=== PATIENT | male | born 1965 | race Caucasian/White ===

== ENCOUNTER 2024-01-13 17:04 | Emergency (ER) | payer OTHER ==
[2024-01-13 17:22] VITALS: RESP 18
[2024-01-13] MEDS: SODIUM CHLORIDE 0.9% 1,000 ML IV STA (17:56)
[2024-01-13] MEDS: methylPREDNISolone SOD SUCCI 125 MG/2 ML VIAL IV STA (17:56)
[2024-01-13 17:57] LABS: Appearance,Urine Clear (Clear); Bilirubin,Urine Negative (Negative); Blood,Urine Negative (Negative); Color,Urine Colorless; Glucose,Urine (UA) Negative (Negative); Ketones,Urine Negative (Negative); Leukocyte Esterase,Urine Negative (Negative); Nitrite,Urine Negative (Negative); PH, Urine 6.5 (5.0-8.0); Protein,Urine Negative (Negative); Specific Gravity,Urine 1.015 (1.001-1.035); Urobilinogen,Urine <2.0 mg/dL (<2.0)
[2024-01-13 17:57] LABS: Basophils % (A) 0 %; Eosinophils # (A) 0.3 k/uL (0-0.7); Eosinophils % (A) 3 %; HCT 37.5 % (39.0-53.0); HGB 12.8 gm/dL (13.0-17.5); Lymphocytes # (A) 1.2 k/uL (1.0-4.8); Lymphocytes % (A) 13 %; MCH 33.7 pg (25.0-35.0); MCHC 34.1 g/dL (31.0-37.0); Mean Platelet Volume 8.1; Monocytes # (A) 1.1 k/uL (0-1.0); Monocytes % (A) 12 %; Neutrophils # (A) 6.4 k/uL (1.3-7.7); Neutrophils % (A) 70 %; Platelet Count 377 k/uL (150-450); RBC 3.79 m/uL (4.30-5.90); RDW 13.2 % (11.5-15.5); WBC 9.2 k/uL (3.8-10.6)
[2024-01-13] MEDS: ACETAMINOPHEN TAB 500 MG TAB PO STA (18:04)
--- NOTE | 2024-01-13 18:34 | XR ---
EXAMINATION TYPE: XR chest 2V DATE OF EXAM: 01/13/2024 6:02 PM COMPARISON: None CLINICAL INDICATION: Male, 58 years old with history of difficulty breathing; [facility] TECHNIQUE: XR chest 2V Frontal and lateral views of the chest. FINDINGS: Lungs/Pleura: Airspace opacities project over the spine and right lung base. There is no evidence of pleural effusion, focal consolidation, or pneumothorax. Pulmonary vascularity: Unremarkable. Heart/mediastinum: Cardiomediastinal silhouette is unremarkable. Musculoskeletal: No acute osseous pathology. IMPRESSION: Right lung base airspace opacities correlate for pneumonia. [facility], , 01/13/2024 6:32 PM
[2024-01-13] MEDS: IPRATROPIUM-ALBUTEROL 3 ML NEB INHALATION STA (19:18)
[2024-01-13 19:22] LABS: ALT 35 U/L (4-49); AST 31 U/L (17-59); African American GFR (CKD) >90 (>60 ml/min/1.73 sqM); Albumin 3.7 g/dL (3.5-5.0); Alkaline Phosphatase 58 U/L (38-126); Anion Gap 4 mmol/L; Blood Urea Nitrogen 17 mg/dL (9-20); Calcium 8.4 mg/dL (8.4-10.2); Carbon Dioxide 26 mmol/L (22-30); Chloride 106 mmol/L (98-107); Glucose 117 mg/dL (74-99); Magnesium 1.8 mg/dL (1.6-2.3); Non-African American GFR(CKD) >90 (>60 ml/min/1.73 sqM); Potassium 4.4 mmol/L (3.5-5.1); Sodium 136 mmol/L (137-145); Total Bilirubin 0.6 mg/dL (0.2-1.3); Total Protein 6.5 g/dL (6.3-8.2)
[2024-01-13] MEDS: ALBUTEROL HFA INHALER INHALATION STA (19:46)
--- NOTE | 2024-01-13 20:22 | ED ---
General Adult HPI - General Chief complaint: Shortness of Breath Stated complaint: covid + Time Seen by Provider: 01/13/24 17:05 Source: patient, EMS, RN notes reviewed, old records reviewed Mode of arrival: EMS Limitations: no limitations - History of Present Illness Initial comments: Is a 58-year-old male who presents emergency department for URI symptoms. Diagnosed with COVID at [facility] where he has been for the last month for rehab. Has a history of COPD. Has been having a worsening productive cough over the last few days. States is green-yellow in color. Low-grade fevers as well. Denies any chest pain. Denies any abdominal pain, nausea, vomiting. Is not usually on oxygen. Has no other acute complaints at this time. Presents for further evaluation at this time. Denies sore throat. Currently day 5 of symptoms. - Related Data Previous Rx's Medication Instructions Recorded Albuterol Sulfate [Ventolin HFA] 1 - 2 puff INHALATION Q6H PRN #1 01/13/24 each Amoxic-Pot Clav 875-125Mg 1 tab PO BID 7 Days #14 tab 01/13/24 [Augmentin 875-125] predniSONE [Deltasone] 40 mg PO DAILY 5 Days #10 tab 01/13/24 Allergies Allergy/AdvReac Type Severity Reaction Status Date / Time No Known Allergies Allergy Verified 01/13/24 17:23 Review of Systems ROS Statement: Those systems with pertinent positive or pertinent negative responses have been documented in the HPI. Review of Systems: CONST: Has low-grade fever EYES: Denies blurry vision ENT: Endorses nasal congestion, cough C/V: Denies Chest pain RESP: Denies shortness of breath GI: Denies abdominal pain : Denies dysuria SKIN: Denies rash. MSK: Denies joint pain. NEURO: Denies headache ROS Other: All systems not noted in ROS Statement are negative. Past Medical History Additional Past Medical History / Comment(s): double hernia History of Any Multi-Drug Resistant Organisms: None Reported Additional Past Surgical History / Comment(s): double hernia Past Psychological History: Depression Smoking Status: Former smoker Past Alcohol Use History: None Reported Past Drug Use History: None Reported General Exam - General Exam Comments Initial Comments: General: Appears in no acute distress. Febrile HEAD: Normal with no signs of head trauma. EYES: EOMI ENT: Hearing grossly intact, normal oropharynx. RESPIRATORY: Mild bilateral end expiratory wheezing. No significant hypoxia. C/V: Tachycardic. S1 and S2 auscultated, no edema, peripheral pulses 2+ and intact throughout ABD: Abd is soft, nontender, nondistended EXT: Normal range of motion, no obvious deformity SKIN: No rashes or lesions observed on exposed skin. NEURO: Alert and oriented x 4. No focal deficits. Limitations: no limitations Course Vital Signs 01/13/24 01/13/24 17:14 20:54 Temperature 100.4 F H 99.4 F Pulse Rate 119 H 98 Respiratory 18 18 Rate Blood Pressure 168/83 129/75 O2 Sat by Pulse 92 L 95 Oximetry Medical Decision Making - Medical Decision Making Was pt. sent in by a medical professional or institution ([facility] Mccord, HEEL CUTTER, urgent care, hospital, or intermediate...) When possible be specific @ -Sent from [place] for evaluation of URI symptoms Did you speak to anyone other than the patient for history (EMS, parent, family, police, friend...)? What history was obtained from this source @ -No Did you review nursing and triage notes (agree or disagree)? Why? @ -I reviewed and agree with nursing and triage notes Were old charts reviewed (outside hosp., previous admission, EMS record, old EKG, old radiological studies, urgent care reports/EKG's, intermediate records)? Report findings @ -No old charts were reviewed Differential Diagnosis (chest pain, altered mental status, abdominal pain women, abdominal pain men, vaginal bleeding, weakness, fever, dyspnea, syncope, headache, dizziness, GI bleed, back pain, seizure, CVA, palpatations, mental health, musculoskeletal)? @ -Pneumonia, flu, RSV, COVID. This list is not all inclusive. EKG interpreted by me (3pts min.). @ -As above X-rays interpreted by me (1pt min.). @ -Chest x-ray reveals right lower lobe pneumonia CT interpreted by me (1pt min.). @ -None done U/S interpreted by me (1pt. min.). @ -None done What testing was considered but not performed or refused? (CT, X-rays, U/S, labs)? Why? @ -None What meds were considered but not given or refused? Why? @ -None Did you discuss the management of the patient with other professionals (professionals i.e. , PA, HEEL CUTTER, lab, RT, psych nurse, child welfare social worker, growth hacker, teacher, medical officer, manager athletics)? Give summary @ -No Was smoking cessation discussed for >3mins.? @ -No Was critical care preformed (if so, how long)? @ -No Were there social determinants of health that impacted care today? How? (Homel essness, low income, unemployed, alcoholism, drug addiction, transportation, low edu. Level, literacy, decrease access to med. care, usp, rehab)? @ -No Was there de-escalation of care discussed even if they declined (Discuss DNR or withdrawal of care, Hospice)? DNR status @ -No What co-morbidities impacted this encounter? (DM, HTN, Smoking, COPD, CAD, Cancer, CVA, ARF, Chemo, Hep., AIDS, mental health diagnosis, sleep apnea, morbid obesity)? @ -COPD Was patient admitted / discharged? Hospital course, mention meds given and route, prescriptions, significant lab abnormalities, going to OR and other pertinent info. @ -Based on the patient's presentation and physical exam, presents emergency department complaining of URI symptoms. Has a history of COPD. Presents from rehab. Low-grade fever. Given breathing treatments just prior to arrival causing low-grade tachycardia. Will continue to monitor. Patient will be administered IV fluids, Tylenol, breathing treatment, steroids. He was in agreement this plan. Vital signs improved. Heart rate improved. Fever improved. Not requiring oxygenation. Labs remarkable for no leukocytosis. Lactic acid within normal limits. Patient is still testing COVID-positive. This is currently day 5. Chest x-ray does show a pneumonia. EKG unremarkable. Discussed the symptoms and findings with the patient. He will be discharged home at this time. Out of the window for antiviral therapy for COVID. Patient will be treated for pneumonia with Augmentin and given a dose prior to discharge. Patient will also be given prescriptions for prednisone as well as albuterol inhaler. He was in agreement this plan. Strict return precautions d iscussed. Vital signs within acceptable limits upon discharge. I will provide the patient with a prescription for Augmentin, prednisone, albuterol inhaler. I instructed the patient to follow up with their PCP in the next 1-3 days.. I explained that the patient should return to the emergency department if they experience any worsening symptoms. Strict return precautions were discussed with the patient. The patient expressed understanding of these instructions. I answered all questions that the patient had. The patient was discharged home in good condition with their prescriptions and follow up information. Undiagnosed new problem with uncertain prognosis? @ -No Drug Therapy requiring intensive monitoring for toxicity (Heparin, Nitro, Insulin, Cardizem)? @ -No Were any procedures done? @ -No Diagnosis/symptom? @ -COPD, COVID-19 infection, pneumonia Acute, or Chronic, or Acute on Chronic? @ -Acute Uncomplicated (without systemic symptoms) or Complicated (systemic symptoms)? @ -Complicated Side effects of treatment? @ -No Exacerbation, Progression, or Severe Exacerbation? @ -No Poses a threat to life or bodily function? How? (Chest pain, [place], [place], pneumonia, PE, COPD, DKA, ARF, appy, cholecystitis, CVA, Diverticulitis, Homicidal, Suicidal, threat to staff... and all critical care pts) @ -Unlikely at this time - Lab Data Result diagrams: 01/13/24 17:44 01/13/24 18:49 Lab Results 01/13/24 01/13/24 01/13/24 Range/Units 17:11 17:11 17:44 WBC 9.2 (3.8-10.6) k/uL RBC 3.79 L (4.30-5.90) m/uL Hgb 12.8 L (13.0-17.5) gm/dL Hct 37.5 L (39.0-53.0) % MCV 99.0 (80.0-100.0) fL MCH 33.7 (25.0-35.0) pg MCHC 34.1 (31.0-37.0) g/dL RDW 13.2 (11.5-15.5) % Plt Count 377 (150-450) k/uL MPV 8.1 Neutrophils % 70 % Lymphocytes % 13 % Monocytes % 12 % Eosinophils % 3 % Basophils % 0 % Neutrophils # 6.4 (1.3-7.7) k/uL Lymphocytes # 1.2 (1.0-4.8) k/uL Monocytes # 1.1 H (0-1.0) k/uL Eosinophils # 0.3 (0-0.7) k/uL Basophils # 0.0 (0-0.2) k/uL Sodium (137-145) mmol/L Potassium (3.5-5.1) mmol/L Chloride (98-107) mmol/L Carbon Dioxide (22-30) mmol/L Anion Gap mmol/L BUN (9-20) mg/dL Creatinine (0.66-1.25) mg/dL Est GFR (CKD-EPI)AfAm (>60 ml/min/1.73 sqM) Est GFR (CKD-EPI)NonAf (>60 ml/min/1.73 sqM) Glucose (74-99) mg/dL Plasma Lactic Acid Rafiq (0.7-2.0) mmol/L Calcium (8.4-10.2) mg/dL Magnesium (1.6-2.3) mg/dL Total Bilirubin (0.2-1.3) mg/dL AST (17-59) U/L ALT (4-49) U/L Alkaline Phosphatase (38-126) U/L Total Protein (6.3-8.2) g/dL Albumin (3.5-5.0) g/dL Urine Color Colorless Urine Appearance Clear (Clear) Urine pH 6.5 (5.0-8.0) Ur Specific Sandy 1.015 (1.001-1.035) Urine Protein Negative (Negative) Urine Glucose (UA) Negative (Negative) Urine Ketones Negative (Negative) Urine Blood Negative (Negative) Urine Nitrite Negative (Negative) Urine Bilirubin Negative (Negative) Urine Urobilinogen <2.0 (<2.0) mg/dL Ur Leukocyte Esterase Negative (Negative) Influenza Type A (PCR) Not Detected (Not Detectd) Influenza Type B (PCR) Not Detected (Not Detectd) RSV (PCR) Not Detected (Not Detectd) SARS-CoV-2 (PCR) Detected A (Not Detectd) 01/13/24 01/13/24 Range/Units 18:49 18:49 WBC (3.8-10.6) k/uL RBC (4.30-5.90) m/uL Hgb (13.0-17.5) gm/dL Hct (39.0-53.0) % MCV (80.0-100.0) fL MCH (25.0-35.0) pg MCHC (31.0-37.0) g/dL RDW (11.5-15.5) % Plt Count (150-450) k/uL MPV Neutrophils % % Lymphocytes % % Monocytes % % Eosinophils % % Basophils % % Neutrophils # (1.3-7.7) k/uL Lymphocytes # (1.0-4.8) k/uL Monocytes # (0-1.0) k/uL Eosinophils # (0-0.7) k/uL Basophils # (0-0.2) k/uL Sodium 136 L (137-145) mmol/L Potassium 4.4 (3.5-5.1) mmol/L Chloride 106 (98-107) mmol/L Carbon Dioxide 26 (22-30) mmol/L Anion Gap 4 mmol/L BUN 17 (9-20) mg/dL Creatinine 0.54 L (0.66-1.25) mg/dL Est GFR (CKD-EPI)AfAm >90 (>60 ml/min/1.73 sqM) Est GFR (CKD-EPI)NonAf >90 (>60 ml/min/1.73 sqM) Glucose 117 H (74-99) mg/dL Plasma Lactic Acid Rafiq 0.9 (0.7-2.0) mmol/L Calcium 8.4 (8.4-10.2) mg/dL Magnesium 1.8 (1.6-2.3) mg/dL Total Bilirubin 0.6 (0.2-1.3) mg/dL AST 31 (17-59) U/L ALT 35 (4-49) U/L Alkaline Phosphatase 58 (38-126) U/L Total Protein 6.5 (6.3-8.2) g/dL Albumin 3.7 (3.5-5.0) g/dL Urine Color Urine Appearance (Clear) Urine pH (5.0-8.0) Ur Specific Sandy (1.001-1.035) Urine Protein (Negative) Urine Glucose (UA) (Negative) Urine Ketones (Negative) Urine Blood (Negative) Urine Nitrite (Negative) Urine Bilirubin (Negative) Urine Urobilinogen (<2.0) mg/dL Ur Leukocyte Esterase (Negative) Influenza Type A (PCR) (Not Detectd) Influenza Type B (PCR) (Not Detectd) RSV (PCR) (Not Detectd) SARS-CoV-2 (PCR) (Not Detectd) - EKG Data -: EKG Interpreted by Me EKG Comments: 12-lead Electrocardiogram Interpretation Note EKG was reviewed and interpreted by myself. 12-lead ECG performed at 1738 is interpreted by me as revealing sinus tachycardia at a rate of 106 beats per mi nute. [place] is normal. [place] interval is 156 ms, QRS duration is 86 ms, QTc is 376 ms.. There were no ST or T wave abnormalities to suggest myocardial ischemia or injury. R wave progression across the precordium was satisfactory. By my interpretation this EKG is non-diagnostic for acute ischemia. Disposition Clinical Impression: COVID-19, Pneumonia, COPD (chronic obstructive pulmonary disease) Disposition: HOME SELF-CARE Condition: Good Instructions (If sedation given, give patient instructions): COPD (Chronic Obstructive Pulmonary Disease) (ED), Community Acquired Pneumonia (ED), COVID-19 (Coronavirus Disease 2019) (ED) Prescriptions: Amoxic-Pot Clav 875-125Mg [Augmentin 875-125] 1 tab PO BID 7 Days #14 tab predniSONE [Deltasone] 40 mg PO DAILY 5 Days #10 tab Albuterol Sulfate [Ventolin HFA] 1 - 2 puff INHALATION Q6H PRN #1 each PRN Reason: Wheezing Is patient prescribed a controlled substance at d/c from ED?: No Referrals: Nonstaff,Physician [Primary Care Provider] - 1-2 days Forms: Area PCPs Time of Disposition: 20:22
[2024-01-13] MEDS: AMOXIC-POT CLAV 875-125MG 1 EACH TAB PO STA (20:52)
[2024-01-13 20:56] VITALS: BP 129/75; PULSE 98; TEMP 99.4
== END 2024-01-13 20:57 | disposition home or self-care (01) ==
LOC: EC 17:04
DX: U07.1 COVID-19 (principal); J12.82 Pneumonia due to coronavirus disease 2019; J44.0 Chronic obstructive pulmonary disease with (acute) lower respiratory infection; R00.0 Tachycardia, unspecified; Z87.891 Personal history of nicotine dependence
CPT/HCPCS: 36415; 94640; 93005; 80053; 83605; 83735; 85025; 81003; 87636; 71046; 99285; 96374; 96361; J2919

== ENCOUNTER 2024-05-13 13:35 | Inpatient (IN) | payer OTHER ==
--- NOTE | 2024-05-13 14:34 | ED ---
SOB HPI - General Chief Complaint: Shortness of Breath Stated Complaint: SOB Time Seen by Provider: 05/13/24 13:43 Source: patient, EMS, RN notes reviewed Mode of arrival: EMS Limitations: no limitations - History of Present Illness Initial Comments: This is a 58-year-old male who presents to the emergency department for shortness of breath. Patient is currently at [facility] and has been there since 05/04. He told the nurse that he was starting to feel short of breath today and when they checked his vital signs his oxygen was found to be 82% on r oom air. They subsequently applied a nasal cannula and called EMS to bring him here for evaluation. Patient states that since receiving oxygen he is starting to feel better. He has a history of COPD. States that he used a breathing treatment this morning and it was not helpful. He just finished antibiotics for pneumonia about a week ago. Denies any chest pain. MD Complaint: shortness of breath - Related Data Previous Rx's Medication Instructions Recorded Albuterol Sulfate [Ventolin HFA] 1 - 2 puff INHALATION Q6H PRN #1 01/13/24 each Amoxic-Pot Clav 875-125Mg 1 tab PO BID 7 Days #14 tab 01/13/24 [Augmentin 875-125] predniSONE [Deltasone] 40 mg PO DAILY 5 Days #10 tab 01/13/24 Allergies Allergy/AdvReac Type Severity Reaction Status Date / Time No Known Allergies Allergy Verified 05/13/24 13:41 Review of Systems ROS Statement: Those systems with pertinent positive or pertinent negative responses have been documented in the HPI. ROS Other: All systems not noted in ROS Statement are negative. Past Medical History Past Medical History: COPD Additional Past Medical History / Comment(s): double hernia History of Any Multi-Drug Resistant Organisms: None Reported Additional Past Surgical History / Comment(s): double hernia Past Psychological History: Depression Smoking Status: Former smoker Past Alcohol Use History: None Reported Past Drug Use History: None Reported General Exam Limitations: no limitations General appearance: alert, in no apparent distress Head exam: Present: atraumatic, normocephalic, normal inspection Respiratory exam: Present: decreased breath sounds, prolonged expiratory Cardiovascular Exam: Present: normal rhythm, tachycardia Neurological exam: Present: alert, oriented X3, CN II-XII intact Psychiatric exam: Present: normal affect, normal mood Skin exam: Present: warm, dry, intact, normal color. Absent: rash Course Vital Signs 05/13/24 05/13/24 05/13/24 13:38 15:22 15:31 Temperature 98.3 F Pulse Rate 111 H 108 H 112 H Respiratory 24 Rate Blood Pressure 147/93 O2 Sat by Pulse 97 Oximetry 05/13/24 05/13/24 15:50 17:40 Temperature 98.4 F Pulse Rate 94 85 Respiratory 20 16 Rate Blood Pressure 146/87 O2 Sat by Pulse 93 L 96 Oximetry Medical Decision Making - Medical Decision Making This is a 58-year-old male who presents to the emergency department for shortness of breath. Was pt. sent in by a medical professional or institution? @ -[facility] Did you speak to anyone other than the patient for history? @ -No Did you review nursing and triage notes? @ -Yes, and I agree, it is accurate with regards to the patient's symptoms. Were old charts reviewed? @ -No Differential Diagnosis? @ -Differential Dyspnea: Coronary syndrome, arrhythmia, tamponade, asthma, COPD, pulmonary embolism, pneumonia, pneumothorax, pulmonary effusion, anaphylaxis, diabetic ketoacidosis, flailed chest, pulmonary contusion, diaphragmatic rupture, anemia, neuromuscular, this is not meant to be an all-inclusive list. EKG interpreted by me (3pts min.)? @ -EKG interpreted by me demonstrating the following: Sinus tachycardia. Ventricular rate 100 bpm, NM interval 176 ms, QRS duration 94 ms, QTc 406 ms. X-rays interpreted by me (1pt min.)? @ -Chest x-ray obtained, my interpretation identifies no localized consolidations or infiltrates. CT interpreted by me (1pt min.)? @ -Not obtained U/S interpreted by me (1pt. min.)? @ -Not obtained What testing was considered but not performed? (CT, X-rays, U/S, labs)? Why? @ -None What meds were considered but not given? Why? @ -None Did you discuss the management of the patient with other professionals? @ -Yes, Dr. Castillo, who accepts the patient for admission Did you reconcile home meds? @ -No Was smoking cessation discussed for >3mins.? @ -No Was critical care preformed (if so, how long)? @ -No Were there social determinants of health that impacted care today? How? (Homelessness, low income, unemployed, alcoholism, drug addiction, transportation, low edu. Level, literacy, decrease access to med. care, intermediate, rehab)? @ -No Was there de-escalation of care discussed even if they declined? (Discuss DNR or withdrawal of care, Hospice)? @ -No What co-morbidities impacted this encounter? (DM, HTN, Smoking, COPD, CAD, Cancer, CVA, Hep., AIDS, mental health diagnosis, sleep apnea, morbid obesity)? @ -COPD Was patient admitted / discharged? @ -Admitted. Lab work unremarkable. D-dimer and troponin negative. Patient positive for RSV. Chest x-ray reveals no acute cardiopulmonary process. Per [facility] he had an oxygen saturation of 82% on room air. We did a room air trial with the patient. Over the course of several minutes his oxygen started to slowly decrease down to 88%. Before it got lower he was put back on the na anatoliy cannula at 2 L. He also did an ambulation trial and he was significantly short of breath with walking just a short distance. His oxygen was 87-88% during short ambulation trial. Patient subsequently admitted to medicine for RSV with hypoxia. Scheduled and prn breathing treatments ordered and consult was placed for pulmonology. Case discussed with ED attending, Dr. Cavazos. Undiagnosed new problem with uncertain prognosis? @ -None Drug Therapy requiring intensive monitoring for toxicity (Heparin, Nitro, Insulin, Cardizem)? @ -None Were any procedures done? @ -None Diagnosis/symptom? @ -RSV, acute hypoxic respiratory failure Acute, or Chronic, or Acute on Chronic? @ -Acute Uncomplicated (without systemic symptoms) or Complicated (systemic symptoms)? @ -Complicated Side effects of treatment? @ -None Exacerbation, Progression, or Severe Exacerbation] @ -Not applicable Poses a threat to life or bodily function? @ -Yes, further respiratory failure can lead to . - Lab Data Result diagrams: 05/13/24 14:18 05/13/24 14:18 Lab Results 05/13/24 05/13/24 05/13/24 Range/Units 14:18 14:18 14:18 WBC 7.2 (3.8-10.6) k/uL RBC 4.53 (4.30-5.90) m/uL Hgb 13.9 (13.0-17.5) gm/dL Hct 42.4 (39.0-53.0) % MCV 93.8 (80.0-100.0) fL MCH 30.7 (25.0-35.0) pg MCHC 32.7 (31.0-37.0) g/dL RDW 13.1 (11.5-15.5) % Plt Count 176 (150-450) k/uL MPV 7.3 Neutrophils % 79 % Lymphocytes % 8 % Monocytes % 9 % Eosinophils % 2 % Basophils % 0 % Neutrophils # 5.7 (1.3-7.7) k/uL Lymphocytes # 0.6 L (1.0-4.8) k/uL Monocytes # 0.6 (0-1.0) k/uL Eosinophils # 0.1 (0-0.7) k/uL Basophils # 0.0 (0-0.2) k/uL PT 10.1 (10.0-12.5) sec INR 0.9 (<1.2) APTT 27.7 (22.0-30.0) sec D-Dimer 0.38 (<0.60) mg/L FEU Sodium 136 L (137-145) mmol/L Potassium (3.5-5.1) mmol/L Chloride 99 (98-107) mmol/L Carbon Dioxide 32 H (22-30) mmol/L Anion Gap 5 mmol/L BUN 17 (9-20) mg/dL Creatinine 0.66 (0.66-1.25) mg/dL Est GFR (CKD-EPI)AfAm >90 (>60 ml/min/1.73 sqM) Est GFR (CKD-EPI)NonAf >90 (>60 ml/min/1.73 sqM) Glucose 115 H (74-99) mg/dL Plasma Lactic Acid Rafiq (0.7-2.0) mmol/L Calcium 8.7 (8.4-10.2) mg/dL Magnesium 1.8 (1.6-2.3) mg/dL Total Bilirubin 1.0 (0.2-1.3) mg/dL AST 50 (17-59) U/L ALT 33 (4-49) U/L Alkaline Phosphatase <20 L (38-126) U/L Troponin I (0.000-0.034) ng/mL NT-Pro-B Natriuret Pep 65 pg/mL Total Protein 7.2 (6.3-8.2) g/dL Albumin 4.3 (3.5-5.0) g/dL Influenza Type A (PCR) (Not Detectd) Influenza Type B (PCR) (Not Detectd) RSV (PCR) (Not Detectd) SARS-CoV-2 (PCR) (Not Detectd) 05/13/24 05/13/24 05/13/24 Range/Units 14:18 14:18 14:18 WBC (3.8-10.6) k/uL RBC (4.30-5.90) m/uL Hgb (13.0-17.5) gm/dL Hct (39.0-53.0) % MCV (80.0-100.0) fL MCH (25.0-35.0) pg MCHC (31.0-37.0) g/dL RDW (11.5-15.5) % Plt Count (150-450) k/uL MPV Neutrophils % % Lymphocytes % % Monocytes % % Eosinophils % % Basophils % % Neutrophils # (1.3-7.7) k/uL Lymphocytes # (1.0-4.8) k/uL Monocytes # (0-1.0) k/uL Eosinophils # (0-0.7) k/uL Basophils # (0-0.2) k/uL PT (10.0-12.5) sec INR (<1.2) APTT (22.0-30.0) sec D-Dimer (<0.60) mg/L FEU Sodium (137-145) mmol/L Potassium (3.5-5.1) mmol/L Chloride (98-107) mmol/L Carbon Dioxide (22-30) mmol/L Anion Gap mmol/L BUN (9-20) mg/dL Creatinine (0.66-1.25) mg/dL Est GFR (CKD-EPI)AfAm (>60 ml/min/1.73 sqM) Est GFR (CKD-EPI)NonAf (>60 ml/min/1.73 sqM) Glucose (74-99) mg/dL Plasma Lactic Acid Rafiq 1.4 (0.7-2.0) mmol/L Calcium (8.4-10.2) mg/dL Magnesium (1.6-2.3) mg/dL Total Bilirubin (0.2-1.3) mg/dL AST (17-59) U/L ALT (4-49) U/L Alkaline Phosphatase (38-126) U/L Troponin I <0.012 (0.000-0.034) ng/mL NT-Pro-B Natriuret Pep pg/mL Total Protein (6.3-8.2) g/dL Albumin (3.5-5.0) g/dL Influenza Type A (PCR) Not Detected (Not Detectd) Influenza Type B (PCR) Not Detected (Not Detectd) RSV (PCR) Detected A (Not Detectd) SARS-CoV-2 (PCR) Not Detected (Not Detectd) - Radiology Data Radiology results: report reviewed, image reviewed Disposition Clinical Impression: RSV (respiratory syncytial virus infection), Acute hypoxic respiratory failure Disposition: ADMITTED IP TO THIS HOSP
[2024-05-13 14:38] LABS: Basophils % (A) 0 %; Eosinophils # (A) 0.1 k/uL (0-0.7); Eosinophils % (A) 2 %; HCT 42.4 % (39.0-53.0); HGB 13.9 gm/dL (13.0-17.5); Lymphocytes # (A) 0.6 k/uL (1.0-4.8); Lymphocytes % (A) 8 %; MCH 30.7 pg (25.0-35.0); MCHC 32.7 g/dL (31.0-37.0); MCV 93.8 fL (80.0-100.0); Mean Platelet Volume 7.3; Monocytes # (A) 0.6 k/uL (0-1.0); Monocytes % (A) 9 %; Neutrophils # (A) 5.7 k/uL (1.3-7.7); Neutrophils % (A) 79 %; Platelet Count 176 k/uL (150-450); RBC 4.53 m/uL (4.30-5.90); RDW 13.1 % (11.5-15.5); WBC 7.2 k/uL (3.8-10.6)
--- NOTE | 2024-05-13 14:40 | XR ---
EXAMINATION TYPE: XR chest 2V DATE OF EXAM: 05/13/2024 2:36 PM COMPARISON: Chest radiographs from 01/13/2024 TECHNIQUE: XR chest 2V Frontal and lateral views of the chest. CLINICAL INDICATION:Male, 58 years old with history of difficulty breathing; FINDINGS: Lungs/Pleura: There is no evidence of pleural effusion, focal consolidation, or pneumothorax. Stable 6 pulmonary nodule within the right lower lung. Pulmonary vascularity: Unremarkable. Heart/mediastinum: Cardiomediastinal silhouette is unremarkable. Musculoskeletal: Multiple level degenerative disc disease changes seen throughout the spine. IMPRESSION: 1. No acute cardiopulmonary disease/process. 2. Stable 6 mm pulmonary nodule within the right lower lung. Recommend further evaluation with outpa tient CT chest. [facility], , 05/13/2024 2:38 PM
[2024-05-13] MEDS: SODIUM CHLORIDE 0.9% 1,000 ML IV ONE (14:49)
[2024-05-13 14:54] LABS: INR 0.9 (<1.2); Partial Thromboplastin Time 27.7 sec (22.0-30.0); Prothrombin Time 10.1 sec (10.0-12.5)
[2024-05-13 14:59] LABS: NT-Pro-B-Type Natriuretic Pept 65 pg/mL
[2024-05-13 15:04] LABS: Influenza A Not Detected (Not Detectd); Influenza B Not Detected (Not Detectd); RSV Detected (Not Detectd)
[2024-05-13 15:18] LABS: ALT 33 U/L (4-49); AST 50 U/L (17-59); African American GFR (CKD) >90 (>60 ml/min/1.73 sqM); Albumin 4.3 g/dL (3.5-5.0); Alkaline Phosphatase <20 U/L (38-126); Anion Gap 5 mmol/L; Blood Urea Nitrogen 17 mg/dL (9-20); Calcium 8.7 mg/dL (8.4-10.2); Carbon Dioxide 32 mmol/L (22-30); Chloride 99 mmol/L (98-107); Glucose 115 mg/dL (74-99); Magnesium 1.8 mg/dL (1.6-2.3); Non-African American GFR(CKD) >90 (>60 ml/min/1.73 sqM); Sodium 136 mmol/L (137-145); Total Protein 7.2 g/dL (6.3-8.2)
[2024-05-13] MEDS: methylPREDNISolone SOD SUCCI 125 MG/2 ML VIAL IV STA (15:18)
[2024-05-13] MEDS: IPRATROPIUM-ALBUTEROL 3 ML NEB INHALATION STA (15:22)
[2024-05-13] MEDS ORDERED: IBUPROFEN 400 MG TAB PO PRN (16:16)
[2024-05-13] MEDS ORDERED: ONDANSETRON 4 MG/2 ML VIAL IVP PRN (16:16)
[2024-05-13] MEDS ORDERED: KETOROLAC 15 MG/ML 1 ML VIAL IVP PRN (16:16)
[2024-05-13] MEDS ORDERED: ACETAMINOPHEN TAB 325 MG TAB PO PRN (16:16)
[2024-05-13] MEDS ORDERED: NALOXONE 0.4 MG/ML 1 ML VIAL IV PRN (16:16)
[2024-05-13] MEDS ORDERED: MELATONIN 3 MG TABLET PO PRN (16:18)
[2024-05-13] MEDS ORDERED: IPRATROPIUM-ALBUTEROL 3 ML NEB INHALATION PRN (16:18)
[2024-05-13] MEDS: SODIUM CHLORIDE 0.9% 1,000 ML IV SCH (16:52)
[2024-05-13] MEDS: IPRATROPIUM-ALBUTEROL 3 ML NEB INHALATION SCH (19:42)
[2024-05-13] MEDS ORDERED: NON FORMULARY DRUG (Calcium Phos/D3/Magnesium/Zinc [Calcium-Mag-Zinc-Vitamin D3] 1 EACH Ta PO PRN (20:51)
[2024-05-13] MEDS: MIRTAZAPINE 15 MG TAB PO SCH (23:05)
[2024-05-13] MEDS: busPIRone HCl 10 MG TAB PO SCH (23:05)
[2024-05-13] MEDS: methylPREDNISolone SOD SUCCI 125 MG/2 ML VIAL IV SCH (23:06)
[2024-05-14] MEDS: HEPARIN SODIUM,PORCINE 5,000 UNIT/ML 1 ML VIAL SQ SCH (00:40)
[2024-05-14] MEDS: NON FORMULARY DRUG (Buprenorphine-Nalox 8-2 Mg Tab 1 EACH Tablet) SUBLINGUAL SCH (03:13)
[2024-05-14] MEDS: PANTOPRAZOLE 40 MG/10 ML VIAL IV SCH (08:09)
[2024-05-14] MEDS: THIAMINE 100 MG TAB PO SCH (08:09)
[2024-05-14] MEDS: MULTIVITAMINS, THERA 1 EACH TAB PO SCH (08:09)
[2024-05-14] MEDS: NICOTINE 14MG/24HR PATCH TRANSDERM SCH (08:10)
[2024-05-14] MEDS ORDERED: ALBUTEROL NEBULIZED 2.5 MG/3 ML INHALATION PRN (08:17)
[2024-05-14] MEDS ORDERED: ALBUTEROL HFA INHALER INHALATION PRN (08:17)
[2024-05-14] MEDS: BUPRENORPHINE-NALOX 8-2 MG TAB 1 EACH TAB.SUBL SL SCH (08:44)
[2024-05-14 09:24] LABS: ALT 28 U/L (10-49); AST 28 U/L (14-35); Albumin/Globulin Ratio 1.82 Ratio (1.60-3.17); Alkaline Phosphatase 42 U/L (41-126); BUN/Creat Ratio 20.43 Ratio (12.00-20.00); Blood Urea Nitrogen 14.3 mg/dL (9.0-27.0); Calcium 8.6 mg/dL (8.7-10.3); Carbon Dioxide 26.8 mmol/L (21.6-31.8); Chloride 103 mmol/L (96-109); Globulin 2.2 g/dL (1.6-3.3); Glucose 163 mg/dL (70-110); Potassium 4.6 mmol/L (3.5-5.5); Sodium 139 mmol/L (135-145); Total Bilirubin <0.2 mg/dL (0.3-1.2); Total Protein 6.2 g/dL (6.2-8.2)
[2024-05-14 10:15] LABS: HCT 40.1 % (39.6-50.0); HGB 12.9 g/dL (13.0-17.0); MCH 30.8 pg (27.0-32.0); MCHC 32.2 g/dL (32.0-37.0); MCV 95.7 FL (80.0-97.0); Mean Platelet Volume 10.3 FL (9.5-12.2); NRBC Per 100 WBC 0 X 10*3/uL (0.00-0.01); Platelet Count 189 X 10*3/uL (140-440); RBC 4.19 X 10*6/uL (4.40-5.60); RDW 12.5 % (11.5-14.5); WBC 4.64 X 10*3/uL (4.50-10.00)
[2024-05-14] MEDS: SYMBICORT 160-4.5 MCG INHALER INHALATION SCH (10:22)
[2024-05-14 11:03] LABS: Basophils # (A) 0.01 X 10*3/uL (0.00-0.10); Basophils % (A) 0.2 %; Eosinophils # (A) 0 X 10*3/uL (0.04-0.35); Eosinophils % (A) 0 %; Lymphocytes # (A) 0.39 X 10*3/uL (0.90-5.00); Lymphocytes % (A) 8.4 %; Monocytes # (A) 0.07 X 10*3/uL (0.20-1.00); Monocytes % (A) 1.5 %; Neutrophils # (A) 4.15 X 10*3/uL (1.80-7.70); Neutrophils % (A) 89.5 %
[2024-05-14 12:06] VITALS: BMI 22.1
--- NOTE | 2024-05-14 14:21 | HP ---
HISTORY AND PHYSICAL CHIEF COMPLAINT: Shortness of breath. HISTORY OF PRESENT ILLNESS: This is a 58-year-old gentleman with a past medical history of multiple medical problems, including substance abuse, who was in [place] mainly for cocaine and IV heroin abuse. The patient has shortness of breath. The patient was found to be hypoxic. The patient has a history of COPD. The patient was admitted for further evaluation and treatment. The chest x-ray showed a stable pulmonary nodule and RSV was positive. PAST MEDICAL HISTORY: COPD, double hernia. Rest of the history and chart is also reviewed. HOME MEDICATIONS: Reviewed and include BuSpar. Dose and rest of medication reviewed. ALLERGIES: None. FAMILY HISTORY: No history of heart disease or strokes in the family. SOCIAL HISTORY: Previous smoking. REVIEW OF SYSTEMS: 14-point review of systems is negative except as mentioned earlier. PHYSICAL EXAMINATION: VITAL SIGNS: Pulse is 72, blood pressure 136/82, respirations 20. HEENT: Conjunctivae are normal. NECK: No JVD. CARDIOVASCULAR: S1, S2. RESPIRATORY: Breath sounds diminished at the bases. Few scattered rhonchi present, and breath sounds increased. ABDOMEN: Soft and nontender. LEGS: No edema. NERVOUS SYSTEM: Nonfocal. LABORATORY DATA: Noted. ASSESSMENT: 1. Chronic obstructive pulmonary disease with acute exacerbation. 2. Acute respiratory syncytial virus infection. 3. History of substance abuse. 4. History of double hernia. 5. Depression. RECOMMENDATIONS: Recommended to continue current medications, continue symptomatic treatment. At this time, I would recommend intensive bronchodilator treatment and also recommended pulmonary consultation. Prognosis is guarded because of multiple complex medical issues and further recommendations to follow. See orders for details. Recommended serum procalcitonin also. MMODL / IJN: [id number] /
--- NOTE | 2024-05-14 18:32 | P.CNPUL ---
History of Present Illness Reason for consult: dyspnea, COPD History of present illness: This is a 58-year-old male patient, homeless, chronic smoker also known history of substance abuse with crack cocaine and IV heroin who was undergoing rehabilitation at [facility] and he admitted himself at the rehab center [facility] 10 days ago. The patient was brought into the emergency department with worsening shortness of breath. He was feeling more congested and his breathing was becoming progressively more labored. No pleurisy. No hemoptysis. No chest pain. He was also found to be hypoxic with a pulse ox of 82% room air oxygen. At that point, the patient got transferred to the hospital for further evaluation. The patient is currently on oxygen at 3 L with a pulse ox of 97%. Chest x-ray done in the emergency department showed no acute cardiopulmonary process. Stable 6 mm nodule in the right lower lobe as noted on the chest x- ray. He tested positive for RSV. His white cell count is at 4.6 with a hemoglobin 12.9 and a platelet count of 189. Normal coagulation profile. D- dimer is at 0.38. Electrolytes are all within normal limits. BUN is 14 with a creatinine of 0.7. LFTs are normal. No signs of drug withdrawal. He is awake and alert and communicating. No leg edema. No other new complaints otherwise for now. Review of Systems Constitutional: Reports daytime sleepiness, Reports fatigue, Reports fever, Reports lethargy Eyes: denies as per HPI, denies blurred vision, denies bulging eye, denies decreased vision, denies diplopia, denies discharge, denies dry eye, denies irritation, denies itching, denies pain, denies photophobia, denies loss of peripheral vision, denies loss of vision, denies tunnel vision/blind spots Ears: deny: decreased hearing, ear discharge, earache, tinnitus Ears, nose, mouth and throat: Reports as per HPI Breasts: absent: as per HPI, gynecomastia Cardiovascular: Reports decreased exercise tolerance, Reports dyspnea on exertion Respiratory: Reports cough, Reports dyspnea, Reports wheezing Gastrointestinal: Reports as per HPI Genitourinary: Reports as per HPI Musculoskeletal: Reports as per HPI Musculoskeletal: absent: ankle pain, ankle stiffness, ankle swelling, as per HPI, elbow pain, elbow stiffness, elbow swelling, foot pain, foot stiffness, foot swelling, hand pain, hand stiffness, hand swelling, hip pain, hip stiffness, hip swelling, knee pain, knee stiffness, knee swelling, shoulder pain, shoulder stiffness, shoulder swelling, wrist pain, wrist stiffness, wrist swelling Integumentary: Reports as per HPI Neurological: Reports as per HPI Psychiatric: Reports as per HPI Endocrine: Reports as per HPI Hematologic/Lymphatic: Reports as per HPI Allergic/Immunologic: Reports as per HPI Past Medical History Past Medical History: COPD Additional Past Medical History / Comment(s): double hernia. Heroin IVDA and crack cocaine smoking and he was at [facility]. Homeless History of Any Multi-Drug Resistant Organisms: None Reported Additional Past Surgical History / Comment(s): double hernia Past Psychological History: Depression Smoking Status: Former smoker Past Alcohol Use History: None Reported Past Drug Use History: None Reported Medications and Allergies Home Medications Medication Instructions Recorded Confirmed Type Acetaminophen Tab [Tylenol] 650 mg PO Q4H PRN 05/13/24 05/13/24 History Albuterol Nebulized [Ventolin 2.5 mg INHALATION RT-Q6H PRN 05/13/24 05/13/24 History Nebulized] Albuterol Sulfate [Ventolin HFA] 1 - 2 puff INHALATION Q6H PRN 05/13/24 05/13/24 History Buprenorphine-Nalox 8-2 mg Tab 1 tab SUBLINGUAL BID 05/13/24 05/13/24 History [Suboxone 8-2 mg Tab] Calcium Phos/D3/Magnesium/Zinc 1 tab PO TID PRN 05/13/24 05/13/24 History [Okjlkap-Vej-Ywbl-Vitamin D3] Ibuprofen [Motrin Ib] 600 mg PO Q6H PRN 05/13/24 05/13/24 History Mirtazapine [Remeron] 15 - 30 mg PO HS 05/13/24 05/13/24 History Multivitamins, Thera [Multivitamin 1 tab PO DAILY 05/13/24 05/13/24 History (formulary)] Nicotine 14Mg/24Hr Patch [Habitrol 1 patch TRANSDERM DAILY 05/13/24 05/13/24 History 14Mg/24Hr Patch] Thiamine [Vitamin B-1] 100 mg PO DAILY 05/13/24 05/13/24 History busPIRone HCl [Buspar] 10 mg PO TID 05/13/24 05/13/24 History Allergies Allergy/AdvReac Type Severity Reaction Status Date / Time No Known Allergies Allergy Verified 05/13/24 18:13 Physical Exam Vitals: Vital Signs Temp Pulse Pulse Resp BP BP Pulse Ox 05/14/24 10:33 80 05/14/24 10:22 76 05/14/24 07:19 97.6 F 87 18 125/79 99 05/14/24 01:59 98.1 F 73 16 110/64 96 05/14/24 01:56 103 H 20 05/13/24 20:05 98.2 F 103 H 20 177/97 96 05/13/24 19:58 98.2 F 72 20 136/81 96 05/13/24 19:54 94 05/13/24 19:43 98 05/13/24 17:40 98.4 F 85 16 146/87 96 05/13/24 15:50 94 20 93 L 05/13/24 15:31 112 H 05/13/24 15:22 108 H 05/13/24 13:38 98.3 F 111 H 24 147/93 97 Intake and Output 05/13/24 05/14/24 05/14/24 22:59 06:59 14:59 Other: Voiding Method Toilet # Voids 2 Weight 68.039 kg 68.039 kg The patient appeared well nourished and normally developed. Vital signs as documented. Stable on 3 l of oxygen by nasal cannula Head exam is unremarkable. No scleral icterus or corneal arcus noted. Neck is without jugular venous distension, thyromegaly, or carotid bruits. Carotid upstrokes are brisk bilaterally. Lungs are diminished bilaterally along with scattered expiratory wheezes heard throughout the lung lopez bilaterally Cardiac exam reveals the PMI to be normally sized and situated. Rhythm is regular. First and second heart sounds normal. No murmurs, rubs or gallops. Abdominal exam reveals normal bowel sounds, no masses, no organomegaly and no aortic enlargement. Extremities are nonedematous and both femoral and pedal pulses are normal. Examination of the skin revealed no evidence of significant rashes, suspicious appearing nevi or other concerning lesions. Neurologically, the patient is awake and alert and the patient does not have any focal neurological deficit. Cranial nerves are essentially intact. Results - Laboratory Findings CBC and BMP: 05/14/24 03:39 05/14/24 03:39 PT/INR, D-dimer PT 10.1 sec (10.0-12.5) 05/13/24 14:18 INR 0.9 (<1.2) 05/13/24 14:18 D-Dimer 0.38 mg/L FEU (<0.60) 05/13/24 14:18 Abnormal lab findings: Abnormal Labs 05/13/24 05/13/24 05/13/24 14:18 14:18 14:18 RBC Hgb Lymphocytes # 0.6 L Monocytes # Eosinophils # Sodium 136 L Carbon Dioxide 32 H BUN/Creatinine Ratio Glucose 115 H Calcium Total Bilirubin Alkaline Phosphatase <20 L RSV (PCR) Detected A 05/14/24 05/14/24 03:39 03:39 RBC 4.19 L Hgb 12.9 L Lymphocytes # 0.39 L Monocytes # 0.07 L Eosinophils # 0 L Sodium Carbon Dioxide BUN/Creatinine Ratio 20.43 H Glucose 163 H Calcium 8.6 L Total Bilirubin <0.2 L Alkaline Phosphatase RSV (PCR) - Diagnostic Findings Chest x-ray: image reviewed Assessment and Plan Plan: Acute exacerbation of COPD with secondary shortness of breath Acute RSV infection Acute hypoxic respiratory failure currently on 3 L of oxygen by nasal cannula Shortness of breath, acute on chronic secondary to above Chronic smoker Homeless History of IV heroin use and history of crack cocaine use, undergoing rehabilitation at [facility] Plan Titrate oxygen flow to maintain saturation above 90% Continue DuoNeb nebulized treatments [id number] Start patient on Symbicort 2 puffs twice a day IV Solu-Medrol 60 mg every 6 hours Continue Suboxone Continue Remeron IV fluids normal saline at rate of 75 cc an hour Heparin subcu for DVT prophylaxis Smoking cessation counseling Will continue to follow Time with Patient: Greater than 30
[2024-05-14] MEDS: IBUPROFEN 600 MG TAB PO PRN (21:52)
--- NOTE | 2024-05-15 04:10 | P.HPIM ---
History of Present Illness Date of service for this note is 05/14/2024 This is a pleasant 58 years old male with past medical history of COPD and other medical problems as below. Presents because of worsening dyspnea over a few days associated with coughing and yellow phlegm which is little in amount. He was in [place] for the last 10 days for withdrawal from substance abuse, mainly cocaine and heroin, he used the substances through significant. Yesterday patient was found short of breath and hypoxic in the hallway with o xygen saturation was 82 so he was referred to the hospital. Denies chest pain. He smokes a pack 1 pack/day and he was counseled to quit and he agrees to the nicotine patch. Patient also denies depression symptoms or suicidal or homicidal ideation Currently he is on 3 L oxygen saturating high 90s afebrile Labs are unremarkable including CBC, BMP, LFT, INR and troponin D-dimer is negative at 0.38 EKG showing sinus tachycardia at 100/min, no significant ST-T changes Chest x-ray showing COPD changes and stable 6 mm right lower lobe pulmonary nodule Viral test was positive for RSV Review of Systems Review of systems CONSTITUTIONAL: No fever, no malaise, no fatigue. HEENT: No recent visual problems or hearing problems. Denied any sore throat. CARDIOVASCULAR: No orthopnea, PND, no palpitations, no syncope. PULMONARY: No s chest wall tenderness, no hemoptysis. GASTROINTESTINAL: No diarrhea, no nausea, no vomiting, no abdominal pain. Normoactive bowel sounds. NEUROLOGICAL: No headaches, no weakness, no numbness. HEMATOLOGICAL: Denies any bleeding or petechiae. GENITOURINARY: Denies any burning micturition, frequency, or urgency. MUSCULOSKELETAL/RHEUMATOLOGICAL: Denies any joint pain, swelling, or any muscle pain. ENDOCRINE: Denies any polyuria or polydipsia. Past Medical History Past Medical History: COPD Additional Past Medical History / Comment(s): double hernia. Heroin IVDA and crack cocaine smoking and he was at [place]. Homeless History of Any Multi-Drug Resistant Organisms: None Reported Additional Past Surgical History / Comment(s): double hernia Past Psychological History: Depression Smoking Status: Former smoker Past Alcohol Use History: None Reported Past Drug Use History: None Reported Medications and Allergies Home Medications Medication Instructions Recorded Confirmed Type Acetaminophen Tab [Tylenol] 650 mg PO Q4H PRN 05/13/24 05/13/24 History Albuterol Nebulized [Ventolin 2.5 mg INHALATION RT-Q6H PRN 05/13/24 05/13/24 History Nebulized] Albuterol Sulfate [Ventolin HFA] 1 - 2 puff INHALATION Q6H PRN 05/13/24 05/13/24 History Buprenorphine-Nalox 8-2 mg Tab 1 tab SUBLINGUAL BID 05/13/24 05/13/24 History [Suboxone 8-2 mg Tab] Calcium Phos/D3/Magnesium/Zinc 1 tab PO TID PRN 05/13/24 05/13/24 History [Ztuqjpu-Pmu-Ipmx-Vitamin D3] Ibuprofen [Motrin Ib] 600 mg PO Q6H PRN 05/13/24 05/13/24 History Mirtazapine [Remeron] 15 - 30 mg PO HS 05/13/24 05/13/24 History Multivitamins, Thera [Multivitamin 1 tab PO DAILY 05/13/24 05/13/24 History (formulary)] Nicotine 14Mg/24Hr Patch [Habitrol 1 patch TRANSDERM DAILY 05/13/24 05/13/24 History 14Mg/24Hr Patch] Thiamine [Vitamin B-1] 100 mg PO DAILY 05/13/24 05/13/24 History busPIRone HCl [Buspar] 10 mg PO TID 05/13/24 05/13/24 History Allergies Allergy/AdvReac Type Severity Reaction Status Date / Time No Known Allergies Allergy Verified 05/13/24 18:13 Physical Exam Vitals: Vital Signs Temp Pulse Pulse Resp BP Pulse Ox 05/15/24 02:07 97.7 F 66 17 107/66 93 L 05/14/24 21:22 90 05/14/24 21:12 90 05/14/24 19:23 98.0 F 96 18 117/71 94 L 05/14/24 17:12 92 05/14/24 16:54 92 05/14/24 14:03 97.6 F 95 19 113/72 97 05/14/24 10:33 80 05/14/24 10:22 76 05/14/24 07:19 97.6 F 87 18 125/79 99 Intake and Output 05/14/24 05/14/24 05/15/24 14:59 22:59 06:59 Output Total 800 Balance -800 Output: Urine 800 Other: Voiding Method Urinal # Voids 2 # Bowel Movements 1 1 Weight 68.039 kg GENERAL: The patient is alert and oriented x3, not in any acute distress. Well developed, well nourished. HEENT: Pupils are round and equally reacting to light. EOMI. No scleral icterus. No conjunctival pallor. Normocephalic, atraumatic. No pharyngeal erythema. No thyromegaly. -CARDIOVASCULAR: S1 and S2 present. Bilateral expiratory murmurs, rubs, or gallops. PULMONARY: Chest is clear to auscultation, no wheezing , no crackles. ABDOMEN: Soft, nontender, nondistended, normoactive bowel sounds. No palpable organomegaly. MUSCULOSKELETAL: No joint swelling or deformity. EXTREMITIES: No cyanosis, clubbing, or pedal edema. NEUROLOGICAL: Gross neurological examination did not reveal any focal deficits. SKIN: No rashes. no petechiae. Results CBC & Chem 7: 05/14/24 03:39 05/14/24 03:39 Labs: Abnormal Lab Results - Last 24 Hours (Table) 05/14/24 05/14/24 Range/Units 03:39 03:39 RBC 4.19 L (4.40-5.60) X 10*6/uL Hgb 12.9 L (13.0-17.0) g/dL Lymphocytes # 0.39 L (0.90-5.00) X 10*3/uL Monocytes # 0.07 L (0.20-1.00) X 10*3/uL Eosinophils # 0 L (0.04-0.35) X 10*3/uL BUN/Creatinine Ratio 20.43 H (12.00-20.00) Ratio Glucose 163 H (70-110) mg/dL Calcium 8.6 L (8.7-10.3) mg/dL Total Bilirubin <0.2 L (0.3-1.2) mg/dL Thrombosis Risk Factor Assmnt - Choose All That Apply Each Factor Represents 1 point: Abnormal pulmonary function (COPD) Thrombosis Risk Factor Assessment Total Risk Factor Score: 1 Thrombosis Risk Factor Assessment Level: Low Risk Assessment and Plan Assessment: Acute COPD exacerbation Acute hypoxic respiratory failure RSV infection with viral tracheobronchitis Substance abuse with cocaine and heroin Stable right lower lobe pulmonary nodule 6 mm Plan: Continue with IV Solu-Medrol Continue with normal saline 75 mL/h Bronchodilator Pulmonary team consult Watch for withdrawal symptoms although less likely given his been more than 10 days and [place] prior to transfer D-dimer is negative Pulmonary team consult GI prophylaxis Protonix DVT prophylaxis subcutaneous heparin Further recommendation based on the clinical course Prognosis still guarded
[2024-05-15] MEDS: PANTOPRAZOLE 40 MG TABLET PO SCH (06:19)
--- NOTE | 2024-05-15 16:01 | P.PN ---
Subjective Progress Note Date: 05/15/24 This is a 58-year-old male patient, homeless, chronic smoker also known history of substance abuse with crack cocaine and IV heroin who was undergoing rehabilitation at [facility] and he admitted himself at the rehab center approximately 10 days ago. The patient was brought into the emergency department with worsening shortness of breath. He was feeling more congested and his breathing was becoming progressively more labored. No pleurisy. No hemoptysis. No chest pain. He was also found to be hypoxic with a pulse ox of 82% room air oxygen. At that point, the patient got transferred to the hospital for further evaluation. The patient is currently on oxygen at 3 L with a pulse ox of 97%. Chest x-ray done in the emergency department showed no acute cardiopulmonary process. Stable 6 mm nodule in the right lower lobe as noted on the chest x-ray. He tested positive for RSV. His white cell count is at 4.6 with a hemoglobin 12.9 and a platelet count of 189. Normal coagulation profile. D-dimer is at 0.38. Electrolytes are all within normal limits. BUN is 14 with a creatinine of 0.7. LFTs are normal. No signs of drug withdrawal. He is awake and alert and communicating. No leg edema. No other new complaints otherwise for now. On 05/15/2024, patient is being seen for a follow-up. Feeling much better compared to yesterday. He is a homeless patient with substance abuse and the patient smokes crack cocaine and IV heroin. He is also a tobacco smoker. He was hospitalized for an acute RSV infection. He is improving. Oxygenation is improving and the patient is currently down to 2 L of oxygen by nasal cannula with a pulse ox of 95%. He seems to be less bronchospastic and wheezy compared to yesterday. No new labs are available from today. No chest pain. No pleurisy or hemoptysis. No altered mentation. No signs of any withdrawals from various drugs including crack cocaine and heroin. The patient came to us from [facility] and is eager to go back to complete rehabilitation. Objective - Vital Signs Vital signs: Vital Signs Temp 97.7 F 05/15/24 07:15 Pulse 86 05/15/24 08:32 Resp 20 05/15/24 07:15 BP 118/72 05/15/24 07:15 Pulse Ox 96 05/15/24 08:23 FiO2 Intake & Output 05/14/24 05/15/24 05/15/24 18:59 06:59 18:59 Output Total 800 Balance -800 Weight 68.039 kg Output: Urine 800 Other: Voiding Method Urinal Urinal # Voids 2 # Bowel Movements 1 1 - Exam The patient appeared well nourished and normally developed. Vital signs as documented. Stable on 2 l of oxygen by nasal cannula Head exam is unremarkable. No scleral icterus or corneal arcus noted. Neck is without jugular venous distension, thyromegaly, or carotid bruits. Carotid upstrokes are brisk bilaterally. Lungs are diminished bilaterally along with scattered expiratory wheezes heard throughout the lung lopez bilaterally Cardiac exam reveals the PMI to be normally sized and situated. Rhythm is regular. First and second heart sounds normal. No murmurs, rubs or gallops. Abdominal exam reveals normal bowel sounds, no masses, no organomegaly and no aortic enlargement. Extremities are nonedematous and both femoral and pedal pulses are normal. Examination of the skin revealed no evidence of significant rashes, suspicious appearing nevi or other concerning lesions. Neurologically, the patient is awake and alert and the patient does not have any focal neurological deficit. Cranial nerves are essentially intact. - Labs CBC & Chem 7: 05/14/24 03:39 05/14/24 03:39 Assessment and Plan Plan: Acute exacerbation of COPD with secondary shortness of breath, clinically improving. Acute RSV infection Acute hypoxic respiratory failure currently on 2 L of oxygen by nasal cannula Shortness of breath, acute on chronic secondary to above Chronic smoker Homeless History of IV heroin use and history of crack cocaine use, undergoing rehabilitation at [facility] Plan Titrate oxygen flow to maintain saturation above 90%, currently on 2 L of oxygen by nasal cannula Continue DuoNeb nebulized treatments [id number] Continue Symbicort 2 puffs twice a day Continue IV Solu-Medrol 60 mg every 6 hours Continue Suboxone Continue Remeron IV fluids KVO Heparin subcu for DVT prophylaxis Smoking cessation counseling Will continue to follow
--- NOTE | 2024-05-15 16:39 | XR ---
EXAMINATION TYPE: XR chest 1V portable DATE OF EXAM: 05/15/2024 4:29 PM COMPARISON: Chest radiographs from 04/16/2024 CLINICAL INDICATION: Male, 58 years old with history of shortness of breath; [facility] TECHNIQUE: XR chest 1V portable Frontal view of the chest. FINDINGS: Lungs/Pleura: Prominent interstitial lung markings are seen scattered throughout the lungs. No eviden ce of focal consolidation, pneumothorax or pleural effusion. Pulmonary vascularity: Unremarkable. Heart/mediastinum: Cardiomediastinal silhouette is unremarkable. Musculoskeletal: No acute osseous pathology. Other findings: None IMPRESSION: Chronic changes without acute pulmonary process. No significant change from prior. [facility], , 05/15/2024 4:36 PM
--- NOTE | 2024-05-16 01:22 | PN ---
PROGRESS NOTE DATE OF SERVICE: 05/15/2024 SUBJECTIVE: This is a 58-year-old gentleman, who was admitted with COPD as well as RSV infection and is being closely monitored. No chest pain, no palpitation. PHYSICAL EXAMINATION: VITAL SIGNS: Pulse is 69, blood pressure 120/70, respirations 20. CHEST: A few scattered rhonchi. ABDOMEN: Soft. NERVOUS SYSTEM: Nonfocal. LABORATORY DATA: Reviewed. ASSESSMENT: 1. Chronic obstructive pulmonary disease with acute exacerbation. 2. Acute respiratory syncytial virus infection. 3. History of substance abuse. 4. History of double hernia. 5. Depression. RECOMMENDATIONS: Recommended to continue with current management. Continue with Repeat labs. Continue with bronchodilators and steroids. Possible return to [facility] in 24 hours. MMODL / IJN: [id number] /
[2024-05-16 08:30] LABS: Basophils # (A) 0.02 X 10*3/uL (0.00-0.10); Basophils % (A) 0.1 %; Eosinophils # (A) 0.01 X 10*3/uL (0.04-0.35); Eosinophils % (A) 0.1 %; HCT 43.5 % (39.6-50.0); HGB 13.6 g/dL (13.0-17.0); Lymphocytes % (A) 4.8 %; MCH 30.7 pg (27.0-32.0); MCHC 31.3 g/dL (32.0-37.0); MCV 98.2 FL (80.0-97.0); Mean Platelet Volume 9.9 FL (9.5-12.2); Monocytes # (A) 0.73 X 10*3/uL (0.20-1.00); Monocytes % (A) 4.4 %; NRBC Per 100 WBC 0 X 10*3/uL (0.00-0.01); Neutrophils # (A) 14.92 X 10*3/uL (1.80-7.70); Neutrophils % (A) 89.8 %; Platelet Count 230 X 10*3/uL (140-440); RBC 4.43 X 10*6/uL (4.40-5.60); RDW 13.1 % (11.5-14.5); WBC 16.62 X 10*3/uL (4.50-10.00)
[2024-05-16 09:11] LABS: BUN/Creat Ratio 26.67 Ratio (12.00-20.00); Calcium 8.9 mg/dL (8.7-10.3); Carbon Dioxide 30.8 mmol/L (21.6-31.8); Chloride 103 mmol/L (96-109); Glucose 120 mg/dL (70-110); Potassium 4.8 mmol/L (3.5-5.5); Sodium 143 mmol/L (135-145)
--- NOTE | 2024-05-16 15:56 | P.PN ---
Subjective Progress Note Date: 05/16/24 This is a 58-year-old male patient, homeless, chronic smoker also known history of substance abuse with crack cocaine and IV heroin who was undergoing rehabilitation at [place] and he admitted himself at the rehab center approximately 10 days ago. The patient was brought into the emergency department with worsening shortness of breath. He was feeling more congested and his breathing was becoming progressively more labored. No pleurisy. No hemoptysis. No chest pain. He was also found to be hypoxic with a pulse ox of 82% room air oxygen. At that point, the patient got transferred to the hospital for further evaluation. The patient is currently on oxygen at 3 L with a pulse ox of 97%. Chest x-ray done in the emergency department showed no acute cardiopulmonary process. Stable 6 mm nodule in the right lower lobe as noted on the chest x-ray. He tested positive for RSV. His white cell count is at 4.6 with a hemoglobin 12.9 and a platelet count of 189. Normal coagulation profile. D-dimer is at 0.38. Electrolytes are all within normal limits. BUN is 14 with a creatinine of 0.7. LFTs are normal. No signs of drug withdrawal. He is awake and alert and communicating. No leg edema. No other new complaints otherwise for now. On 05/15/2024, patient is being seen for a follow-up. Feeling much better compared to yesterday. He is a homeless patient with substance abuse and the patient smokes crack cocaine and IV heroin. He is also a tobacco smoker. He was hospitalized for an acute RSV infection. He is improving. Oxygenation is improving and the patient is currently down to 2 L of oxygen by nasal cannula with a pulse ox of 95%. He seems to be less bronchospastic and wheezy compared to yesterday. No new labs are available from today. No chest pain. No pleurisy or hemoptysis. No altered mentation. No signs of any withdrawals from various drugs including crack cocaine and heroin. The patient came to us from [place] and is eager to go back to complete rehabilitation. 05/16/2024, the patient is being seen for a follow-up. The patient is still hypoxic and requiring 2 L of oxygen by nasal cannula. He reports slow but ongoing improvement. He remains on Symbicort, DuoNeb updrafts, and IV Solu- Medrol. No new complaints. No agitation. No restlessness. White cell count of 16, likely steroid-induced and the patient's hemoglobin is 13.6 and a platelet count is 230. BUN is 16 and the creatinine is at 0.6 and sodium levels at 143. No other significant events overnight. Ambulating. Using the incentive spirometer. Objective - Vital Signs Vital signs: Vital Signs Temp 97.4 F L 05/16/24 07:39 Pulse 88 05/16/24 11:51 Resp 20 05/16/24 07:39 BP 113/69 05/16/24 07:39 Pulse Ox 93 L 05/16/24 07:39 FiO2 Intake & Output 05/15/24 05/16/24 05/16/24 18:59 06:59 18:59 Other: Voiding Method Urinal Urinal # Voids 1 1 - Exam The patient appeared well nourished and normally developed. Vital signs as documented. Stable on 2 l of oxygen by nasal cannula Head exam is unremarkable. No scleral icterus or corneal arcus noted. Neck is without jugular venous distension, thyromegaly, or carotid bruits. Carotid upstrokes are brisk bilaterally. Lungs are diminished bilaterally along with scattered expiratory wheezes heard throughout the lung lopez bilaterally Cardiac exam reveals the PMI to be normally sized and situated. Rhythm is regular. First and second heart sounds normal. No murmurs, rubs or gallops. Abdominal exam reveals normal bowel sounds, no masses, no organomegaly and no aortic enlargement. Extremities are nonedematous and both femoral and pedal pulses are normal. Examination of the skin revealed no evidence of significant rashes, suspicious appearing nevi or other concerning lesions. Neurologically, the patient is awake and alert and the patient does not have any focal neurological deficit. Cranial nerves are essentially intact. - Labs CBC & Chem 7: 05/16/24 03:35 05/16/24 03:35 Labs: Abnormal Lab Results - Last 24 Hours (Table) 05/16/24 05/16/24 Range/Units 03:35 03:35 WBC 16.62 H (4.50-10.00) X 10*3/uL MCV 98.2 H (80.0-97.0) FL MCHC 31.3 L (32.0-37.0) g/dL Immature Gran # 0.14 H (0.00-0.04) X 10*3/uL Neutrophils # 14.92 H (1.80-7.70) X 10*3/uL Lymphocytes # 0.80 L (0.90-5.00) X 10*3/uL Eosinophils # 0.01 L (0.04-0.35) X 10*3/uL BUN/Creatinine Ratio 26.67 H (12.00-20.00) Ratio Glucose 120 H (70-110) mg/dL Assessment and Plan Plan: Acute exacerbation of COPD with secondary shortness of breath, clinically improving. Acute RSV infection Acute hypoxic respiratory failure currently on 2 L of oxygen by nasal cannula Shortness of breath, acute on chronic secondary to above Chronic smoker Homeless History of IV heroin use and history of crack cocaine use, undergoing rehabilitation at [facility] The patient is still oxygen dependent. Unable to wean the oxygen as the patient desaturates and he continues to have symptoms of COPD exacerbation related to RSV infection. Will continue same treatment and will give the patient 24 hours. Titrate oxygen flow to maintain saturation above 90%, currently on 2 L of oxygen by nasal cannula Continue DuoNeb nebulized treatments [id number] Continue Symbicort 2 puffs twice a day Continue IV Solu-Medrol 60 mg every 6 hours Continue Suboxone Continue Remeron IV fluids KVO Heparin subcu for DVT prophylaxis Smoking cessation counseling Will continue to follow
--- NOTE | 2024-05-16 16:26 | XR ---
EXAMINATION TYPE: XR chest 1V portable DATE OF EXAM: 05/16/2024 4:19 PM COMPARISON: Chest radiographs from 05/15/2024 CLINICAL INDICATION: Male, 58 years old with history of shortness of breath; [facility] TECHNIQUE: XR chest 1V portable Frontal view of the chest. FINDINGS: Lungs/Pleura: There is no evidence of pleural effusion, focal consolidation, or pneumothorax. Pulmonary vascularity: Unremarkable. Heart/mediastinum: Cardiomediastinal silhouette is unremarkable. Musculoskeletal: No acute osseous pathology. Other findings: None IMPRESSION: No acute cardiopulmonary disease/process. [facility], , 05/16/2024 4:24 PM
[2024-05-16] MEDS: ALBUTEROL NEBULIZED 2.5 MG/3 ML INHALATION SCH (17:19)
--- NOTE | 2024-05-16 21:36 | P.PN ---
Subjective Progress Note Date: 05/16/24 This is a pleasant 58-year-old male who was recently admitted from [place] with increasing shortness of breath found to be RSV positive along with COPD exacerbation and respiratory failure. Patient currently on 2 L and performed oxygen evaluation and desats quickly to 80% on room air. Patient does not normally wear oxygen outpatient. Patient with significant COPD and expiratory wheezes is maintained on [id number] DuoNeb treatments along with IV steroids. Encouraged incentive spirometer use and increase activity as tolerated. Review of systems: Constitutional: No reports of fatigue, fever, or chills Cardiovascular: No reports of chest pain or palpitations Respiratory: reports of continued shortness of breath, continued cough now with some minimal production GI: No reports of nausea, no reports of vomiting, no diarrhea : No reports of dysuria or retention Neurovascular: No reports of generalized weakness, becomes winded on exertion All medications have been reviewed PHYSICAL EXAMINATION: GENERAL: The patient is alert and oriented x4, Well developed, thin built appears older than stated age. HEENT: Pupils are round and equally reacting to light. EOMI. no scleral icterus. No conjunctival pallor. Normocephalic, atraumatic. No pharyngeal erythema. No thyromegaly. CARDIOVASCULAR: S1 and S2 muffled PULMONARY: diminished breath sounds bilaterally expiratory wheezing and coarse rhonchi noted. ABDOMEN: soft. Nontender on exam. Thin. non-distended, normoactive bowel sounds. No palpable organomegaly. MUSCULOSKELETAL: No joint swelling or deformity. EXTREMITIES: No cyanosis, clubbing, or pedal edema. NEUROLOGICAL: Gross neurological examination did not reveal any focal deficits. SKIN: No rashes. Assessment: Chronic obstructive pulmonary disease with acute exacerbation Acute hypoxic respiratory failure, multifactorial, secondary to COPD as well as acute RSV infection Acute RSV infection History of substance abuse and IV drug abuse, currently at [place] for inpatient rehab Depression Former smoker GI prophylaxis DVT prophylaxis Full code Plan: Recommend to continue with current medications and management with pulmonary following. Patient is maintained on DuoNeb treatments [id number] along with IV steroids and inhalers clinically showing some slow improvement although not back at baseline. Patient continues to be hypoxic on room air and was evaluated and is 80% on room air with minimal exertion. Encourage incentive spirometer use at least 10 times every hour while awake Continue with supplemental oxygen and wean as tolerated Overall prognosis is guarded at this time Patient will be returning to [place] to complete inpatient rehab for polysubstance abuse on discharge. The impression and plan of care has been dictated by Nguyen Ybarra, nurse practitioner as directed. Dr. Frederick MD I have performed a history and examination and MDM of this patient, discussed the same with the dictator, and agree with the dictator's assessment and plan as written ,documented as a scribe. Based on total visit time, I have performed more than 50% of the visit. Any additional findings or plans will be noted. Objective - Vital Signs Vital signs: Vital Signs Temp 97.4 F L 05/16/24 07:39 Pulse 92 05/16/24 12:01 Resp 20 05/16/24 07:39 BP 113/69 05/16/24 07:39 Pulse Ox 93 L 05/16/24 07:39 FiO2 Intake & Output 05/15/24 05/16/24 05/16/24 18:59 06:59 18:59 Other: Voiding Method Urinal Urinal # Voids 1 1 - Labs CBC & Chem 7: 05/16/24 03:35 05/16/24 03:35 Labs: Abnormal Lab Results - Last 24 Hours (Table) 05/16/24 05/16/24 Range/Units 03:35 03:35 WBC 16.62 H (4.50-10.00) X 10*3/uL MCV 98.2 H (80.0-97.0) FL MCHC 31.3 L (32.0-37.0) g/dL Immature Gran # 0.14 H (0.00-0.04) X 10*3/uL Neutrophils # 14.92 H (1.80-7.70) X 10*3/uL Lymphocytes # 0.80 L (0.90-5.00) X 10*3/uL Eosinophils # 0.01 L (0.04-0.35) X 10*3/uL BUN/Creatinine Ratio 26.67 H (12.00-20.00) Ratio Glucose 120 H (70-110) mg/dL
[2024-05-17] MEDS: TIOTROPIUM 2.5 MCG INHALER INHALATION SCH (07:47)
[2024-05-17 11:57] LABS: HIV-1 RNA Not detected (Not detected)
--- NOTE | 2024-05-17 23:06 | P.PN ---
Subjective Progress Note Date: 05/17/24 This is a 58-year-old male patient, homeless, chronic smoker also known history of substance abuse with crack cocaine and IV heroin who was undergoing rehabilitation at [place] and he admitted himself at the rehab center approximately 10 days ago. The patient was brought into the emergency department with worsening shortness of breath. He was feeling more congested and his breathing was becoming progressively more labored. No pleurisy. No hemoptysis. No chest pain. He was also found to be hypoxic with a pulse ox of 82% room air oxygen. At that point, the patient got transferred to the hospital for further evaluation. The patient is currently on oxygen at 3 L with a pulse ox of 97%. Chest x-ray done in the emergency department showed no acute cardiopulmonary process. Stable 6 mm nodule in the right lower lobe as noted on the chest x-ray. He tested positive for RSV. His white cell count is at 4.6 with a hemoglobin 12.9 and a platelet count of 189. Normal coagulation profile. D-dimer is at 0.38. Electrolytes are all within normal limits. BUN is 14 with a creatinine of 0.7. LFTs are normal. No signs of drug withdrawal. He is awake and alert and communicating. No leg edema. No other new complaints otherwise for now. On 05/15/2024, patient is being seen for a follow-up. Feeling much better compared to yesterday. He is a homeless patient with substance abuse and the patient smokes crack cocaine and IV heroin. He is also a tobacco smoker. He was hospitalized for an acute RSV infection. He is improving. Oxygenation is improving and the patient is currently down to 2 L of oxygen by nasal cannula with a pulse ox of 95%. He seems to be less bronchospastic and wheezy compared to yesterday. No new labs are available from today. No chest pain. No pleurisy or hemoptysis. No altered mentation. No signs of any withdrawals from various drugs including crack cocaine and heroin. The patient came to us from [place] and is eager to go back to complete rehabilitation. 05/16/2024, the patient is being seen for a follow-up. The patient is still hypoxic and requiring 2 L of oxygen by nasal cannula. He reports slow but ongoing improvement. He remains on Symbicort, DuoNeb updrafts, and IV Solu- Medrol. No new complaints. No agitation. No restlessness. White cell count of 16, likely steroid-induced and the patient's hemoglobin is 13.6 and a platelet count is 230. BUN is 16 and the creatinine is at 0.6 and sodium levels at 143. No other significant events overnight. Ambulating. Using the incentive spirometer. On 05/17/2024, the patient is on 1 L of oxygen by nasal cannula. He continues to saturate on room air oxygen especially with activity. He is feeling better. Less mucus basic and wheezy. No new complaints otherwise for now. No new labs are available from today. He remains on the same regimen of bronchodilators. He is on DuoNeb updrafts. He is on Symbicort as maintenance, and he remains on IV Solu-Medrol. He is active. He is ambulating. He is using incentive spirometer. Objective - Vital Signs Vital signs: Vital Signs Temp 97.5 F L 05/17/24 07:05 Pulse 78 05/17/24 07:05 Resp 17 05/17/24 07:05 BP 151/92 05/17/24 07:05 Pulse Ox 96 05/17/24 07:05 FiO2 Intake & Output 05/16/24 05/17/24 05/17/24 18:59 06:59 18:59 Output Total 300 Balance -300 Output: Urine 300 Other: Voiding Method Toilet Urinal # Voids 2 - Exam The patient appeared well nourished and normally developed. Vital signs as documented. Stable on 2 l of oxygen by nasal cannula Head exam is unremarkable. No scleral icterus or corneal arcus noted. Neck is without jugular venous distension, thyromegaly, or carotid bruits. Carotid upstrokes are brisk bilaterally. Lungs are diminished bilaterally along with scattered expiratory wheezes heard throughout the lung lopez bilaterally Cardiac exam reveals the PMI to be normally sized and situated. Rhythm is regular. First and second heart sounds normal. No murmurs, rubs or gallops. Abdominal exam reveals normal bowel sounds, no masses, no organomegaly and no aortic enlargement. Extremities are nonedematous and both femoral and pedal pulses are normal. Examination of the skin revealed no evidence of significant rashes, suspicious appearing nevi or other concerning lesions. Neurologically, the patient is awake and alert and the patient does not have any focal neurological deficit. Cranial nerves are essentially intact. - Labs CBC & Chem 7: 05/16/24 03:35 05/16/24 03:35 Assessment and Plan Plan: Acute exacerbation of COPD with secondary shortness of breath, clinically improving. Acute RSV infection Acute hypoxic respiratory failure currently on 2 L of oxygen by nasal cannula Shortness of breath, acute on chronic secondary to above Chronic smoker Homeless History of IV heroin use and history of crack cocaine use, undergoing rehabilitation at [facility] The patient is still oxygen dependent. Currently on 1 L of oxygen by nasal cannula Anticipate further improvement in his oxygenation over the next 24 hours. Clinically improving. He is more active. Continue DuoNeb nebulized treatments [id number] Continue Symbicort 2 puffs twice a day Continue IV Solu-Medrol 60 mg every 6 hours Continue Suboxone Continue Remeron IV fluids KVO Heparin subcu for DVT prophylaxis Smoking cessation counseling Will continue to follow
--- NOTE | 2024-05-18 06:06 | P.PN ---
Subjective Progress Note Date: 05/17/24 This is a pleasant 58-year-old male who was recently admitted from [place] with increasing shortness of breath found to be RSV positive along with COPD exacerbation and respiratory failure. Patient currently on 2 L and performed oxygen evaluation and desats quickly to 80% on room air. Patient does not normally wear oxygen outpatient. Patient with significant COPD and expiratory wheezes is maintained on [id number] DuoNeb treatments along with IV steroids. Encouraged incentive spirometer use and increase activity as tolerated. 05/17/2024 Patient is seen in follow-up today being followed by pulmonary maintained on 1 L via nasal cannula and saturating 96%. Patient desats very quickly off oxygen and is difficult to recover. Attempted home O2 evaluation yesterday and oxygen saturation dropped into the low 80s and patient does not wear oxygen outpatient. Plan is to return to [place] for continued inpatient rehab and unable to bring oxygen at there. Continue to wean FiO2 as tolerated and strongly encouraged increased activity and continued incentive spirometer use. Will co ntinue [id number] DuoNebs along with steroids at this time. Review of systems: Constitutional: No reports of fatigue, fever, or chills Cardiovascular: No reports of chest pain or palpitations Respiratory: reports of continued shortness of breath, continued cough now with some minimal improvement in phlegm production GI: No reports of nausea, no reports of vomiting, no diarrhea : No reports of dysuria or retention Neurovascular: No reports of generalized weakness, becomes winded on exertion All medications have been reviewed PHYSICAL EXAMINATION: GENERAL: The patient is alert and oriented x4, Well developed, thin built appears older than stated age. HEENT: Pupils are round and equally reacting to light. EOMI. no scleral icterus. No conjunctival pallor. Normocephalic, atraumatic. No pharyngeal erythema. No thyromegaly. CARDIOVASCULAR: S1 and S2 muffled PULMONARY: diminished breath sounds bilaterally expiratory wheezing and coarse rhonchi noted. ABDOMEN: soft. Nontender on exam. Thin. non-distended, normoactive bowel sounds. No palpable organomegaly. MUSCULOSKELETAL: No joint swelling or deformity. EXTREMITIES: No cyanosis, clubbing, or pedal edema. NEUROLOGICAL: Gross neurological examination did not reveal any focal deficits. SKIN: No rashes. Assessment: Chronic obstructive pulmonary disease with acute exacerbation Acute hypoxic respiratory failure, multifactorial, secondary to COPD as well as acute RSV infection Acute RSV infection History of substance abuse and IV drug abuse, currently at [place] for inpatient rehab Depression Former smoker GI prophylaxis DVT prophylaxis Full code Plan: Recommend to continue with current medications and management with pulmonary following. Patient is maintained on DuoNeb treatments [id number] along with IV steroids and inhalers clinically showing some slow improvement although not back at baseline. Patient continues to be hypoxic on room air and was evaluated and is 80% on room air with minimal exertion. Wean FiO2 as tolerated. Currently on 1 L Encourage incentive spirometer use at least 10 times every hour while awake Continue with supplemental oxygen and wean as tolerated Overall prognosis is guarded at this time Patient will be returning to [place] to complete inpatient rehab for polysubstance abuse on discharge. The impression and plan of care has been dictated by Nguyen Ybarra, nurse practitioner as directed. Dr. Frederick MD I have performed a history and examination and MDM of this patient, discussed the same with the dictator, and agree with the dictator's assessment and plan as written ,documented as a scribe. Based on total visit time, I have performed more than 50% of the visit. Any additional findings or plans will be noted. Objective - Vital Signs Vital signs: Vital Signs Temp 97.6 F 05/18/24 01:41 Pulse 78 05/18/24 01:41 Resp 16 05/18/24 01:41 BP 136/78 05/18/24 01:41 Pulse Ox 99 05/18/24 01:41 FiO2 Intake & Output 05/17/24 05/17/24 05/18/24 06:59 18:59 06:59 Output Total 300 500 Balance -300 -500 Weight 68.039 kg Output: Urine 300 500 Other: Voiding Method Toilet Toilet Urinal Urinal # Voids 2 # Bowel Movements 1 - Labs CBC & Chem 7: 05/16/24 03:35 05/16/24 03:35 Labs: Microbiology - Last 24 Hours (Table) 05/16/24 16:35 Blood Culture - Preliminary Blood 05/17/24 06:59 Gram Stain - Preliminary Sputum
[2024-05-18 07:44] VITALS: BP 175/90; PULSE 75; RESP 20; TEMP 97.4
--- NOTE | 2024-05-18 17:30 | P.PN ---
Subjective Progress Note Date: 05/18/24 This is a 58-year-old male patient, homeless, chronic smoker also known history of substance abuse with crack cocaine and IV heroin who was undergoing rehabilitation at [facility] and he admitted himself at the rehab center approximately 10 days ago. The patient was brought into the emergency department with worsening shortness of breath. He was feeling more congested and his breathing was becoming progressively more labored. No pleurisy. No hemoptysis. No chest pain. He was also found to be hypoxic with a pulse ox of 82% room air oxygen. At that point, the patient got transferred to the hospital for further evaluation. The patient is currently on oxygen at 3 L with a pulse ox of 97%. Chest x-ray done in the emergency department showed no acute cardiopulmonary process. Stable 6 mm nodule in the right lower lobe as noted on the chest x-ray. He tested positive for RSV. His white cell count is at 4.6 with a hemoglobin 12.9 and a platelet count of 189. Normal coagulation profile. D-dimer is at 0.38. Electrolytes are all within normal limits. BUN is 14 with a creatinine of 0.7. LFTs are normal. No signs of drug withdrawal. He is awake and alert and communicating. No leg edema. No other new complaints otherwise for now. On 05/15/2024, patient is being seen for a follow-up. Feeling much better compared to yesterday. He is a homeless patient with substance abuse and the patient smokes crack cocaine and IV heroin. He is also a tobacco smoker. He was hospitalized for an acute RSV infection. He is improving. Oxygenation is improving and the patient is currently down to 2 L of oxygen by nasal cannula with a pulse ox of 95%. He seems to be less bronchospastic and wheezy compared to yesterday. No new labs are available from today. No chest pain. No pleurisy or hemoptysis. No altered mentation. No signs of any withdrawals from various drugs including crack cocaine and heroin. The patient came to us from [facility] and is eager to go back to complete rehabilitation. 05/16/2024, the patient is being seen for a follow-up. The patient is still hypoxic and requiring 2 L of oxygen by nasal cannula. He reports slow but ongoing improvement. He remains on Symbicort, DuoNeb updrafts, and IV Solu- Medrol. No new complaints. No agitation. No restlessness. White cell count of 16, likely steroid-induced and the patient's hemoglobin is 13.6 and a platelet count is 230. BUN is 16 and the creatinine is at 0.6 and sodium levels at 143. No other significant events overnight. Ambulating. Using the incentive spirometer. On 05/17/2024, the patient is on 1 L of oxygen by nasal cannula. He continues to saturate on room air oxygen especially with activity. He is feeling better. Less mucus basic and wheezy. No new complaints otherwise for now. No new labs are available from today. He remains on the same regimen of bronchodilators. He is on DuoNeb updrafts. He is on Symbicort as maintenance, and he remains on IV Solu-Medrol. He is active. He is ambulating. He is using incentive spirometer. 05/18/2024, Gagandeep is feeling better. His oxygenation is improved. He denies having any specific complaints. I think he can continue his rest of the treatment on outpatient basis. The patient is to be discharged on a combination of Spiriva and Symbicort as maintenance and prednisone burst taper. We will be also offered albuterol rescue inhaler to be used on an as-needed basis. If possible, the patient is interested in going back to [facility]. Objective - Vital Signs Vital signs: Vital Signs Temp 97.4 F L 05/18/24 07:23 Pulse 75 05/18/24 07:23 Resp 20 05/18/24 07:23 BP 175/90 05/18/24 07:23 Pulse Ox 93 L 05/18/24 07:23 FiO2 Intake & Output 05/17/24 05/18/24 05/18/24 18:59 06:59 18:59 Output Total 500 300 Balance -500 -300 Weight 68.039 kg Output: Urine 500 300 Other: Voiding Method Toilet Urinal # Voids 2 # Bowel Movements 1 - Exam The patient appeared well nourished and normally developed. Vital signs as documented. Stable on 2 l of oxygen by nasal cannula Head exam is unremarkable. No scleral icterus or corneal arcus noted. Neck is without jugular venous distension, thyromegaly, or carotid bruits. Carotid upstrokes are brisk bilaterally. Lungs are diminished bilaterally along with scattered expiratory wheezes heard throughout the lung lopez bilaterally Cardiac exam reveals the PMI to be normally sized and situated. Rhythm is regular. First and second heart sounds normal. No murmurs, rubs or gallops. Abdominal exam reveals normal bowel sounds, no masses, no organomegaly and no aortic enlargement. Extremities are nonedematous and both femoral and pedal pulses are normal. Examination of the skin revealed no evidence of significant rashes, suspicious appearing nevi or other concerning lesions. Neurologically, the patient is awake and alert and the patient does not have any focal neurological deficit. Cranial nerves are essentially intact. - Labs CBC & Chem 7: 05/16/24 03:35 05/16/24 03:35 Labs: Microbiology - Last 24 Hours (Table) 05/16/24 16:35 Blood Culture - Preliminary Blood 05/17/24 06:59 Gram Stain - Preliminary Sputum Assessment and Plan Plan: Acute exacerbation of COPD with secondary shortness of breath, clinically improving. Shortness of breath is improved. Oxygenation is also improved and the patient is currently on room air oxygen. Acute RSV infection Acute hypoxic respiratory failure, improved Shortness of breath, acute on chronic secondary to above Chronic smoker Homeless History of IV heroin use and history of crack cocaine use, undergoing rehabilitation at [facility] Plan The patient is feeling better and oxygenation is improved. doing a home O2 evaluation If oxygenation is stable, the patient can be discharged home on a combination of Symbicort and Spiriva and albuterol nebulized treatments/HFA as needed. He also completed prednisone burst taper on outpatient basis starting with 40 mg to be tapered by 10 mg every 4 days. Continue Suboxone Continue Remeron IV fluids KVO Heparin subcu for DVT prophylaxis Smoking cessation counseling Possible discharge home versus discharge to [facility]. Medicine is involved.
--- NOTE | 2024-05-20 12:58 | P.DS ---
Providers Date of admission: 05/13/24 17:14 Expected date of discharge: 05/18/24 Attending physician: Yusuf Castillo Consults: 05/13/24 16:16 Consult Physician Urgent Consulting Provider: Richmond Molina Consult Reason/Comments: RSV with hypoxic respiratory failure Do you want consulting provider notified?: Yes Primary care physician: Anabelle Anderson, Hospital Course: Final diagnosis Chronic obstructive pulmonary disease with acute exacerbation Acute hypoxic respiratory failure, multifactorial, secondary to COPD as well as acute RSV infection, improved on room air Acute RSV infection History of substance abuse and IV drug abuse, currently at [facility] for inpatient rehab Depression Former smoker GI prophylaxis DVT prophylaxis Full code Discharge disposition Patient is being discharged in a stable condition with guarded prognosis to [facility] for continued polysubstance rehab. Patient will follow-up with Dr. Anderson in the outpatient setting upon discharge. Patient is to continue with antibiotics and steroid taper with inhalers and recommend outpatient follow-up with pulmonary as scheduled. Total time taken is greater than 35 minutes. Hospital course This is a 58-year-old male who was recently admitted from [facility] with increasing shortness of breath with toxic respiratory failure multifactorial secondary to acute RSV infection as well as COPD. Patient slow to improve although is improving maintained on room air now we will continue prednisone taper along with continued incentive spirometer, antibiotics, breathing treatments and recommend outpatient follow-up with pulmonary once discharged from rehab. Please refer to other consultation note for further HPI. Currently no reports of chest pain, shortness of breath, or palpitations. Patient is afebrile. No reports of nausea or vomiting and patient is tolerating diet. Patient will be going to [facility] today. Guarded prognosis Physical exam: Gen: This is a 58-year-old male who is awake, alert and oriented x 3, thin build, appears older than his stated age HEENT: Head is atraumatic, normocephalic. Pupils equal, round. Sclerae is anicteric. NECK: Supple. No JVD. No lymphadenopathy. No thyromegaly. LUNGS: Diminished breath sounds bilaterally with some faint expiratory wheezes and coarse rhonchi. No intercostal retractions. HEART: S1, S2 are muffled ABDOMEN: Soft. Thin. Bowel sounds are present. No masses. No tenderness. EXTREMITIES: No pedal edema. No calf tenderness. NEUROLOGICAL: Patient is awake, alert and oriented x3. Cranial nerves 2 through 12 are grossly intact. Please refer to medication reconciliation sheet for a list of medications. The impression and plan of care has been dictated by Nguyen Ybarra, Nurse Practitioner as directed. Dr. Frederick MD I have performed a history and examination and MDM of this patient, discussed the same with the dictator, and agree with the dictator's assessment and plan as written ,documented as a scribe. Based on total visit time, I have performed more than 50% of the visit. Patient Condition at Discharge: Fair Plan - Discharge Summary Discharge Rx Participant: No New Discharge Prescriptions: New cefuroxime axetiL [Ceftin] 500 mg PO BID 5 Days #10 tab Tiotropium 2.5 Mcg/Puff [Spiriva Respimat 2.5 Mcg] 2 puff INHALATION RT-DAILY 30 Days #1 each Budesonide-Formot 160-4.5 Mcg [Symbicort 160-4.5 Mcg Inhaler] 2 puff INHALATION RT-BID #1 each predniSONE See Taper PO DIRECTED #30 tab Continue Acetaminophen Tab [Tylenol] 650 mg PO Q4H PRN PRN Reason: Pain busPIRone HCl [Buspar] 10 mg PO TID Calcium Phos/D3/Magnesium/Zinc [Cycckqb-Ref-Ahwi-Vitamin D3] 1 tab PO TID PRN PRN Reason: muscle cramps Buprenorphine-Nalox 8-2 mg Tab [Suboxone 8-2 mg Tab] 1 tab SUBLINGUAL BID Albuterol Nebulized [Ventolin Nebulized] 2.5 mg INHALATION RT-Q6H PRN PRN Reason: Shortness Of Breath Thiamine [Vitamin B-1] 100 mg PO DAILY Multivitamins, Thera [Multivitamin (formulary)] 1 tab PO DAILY Ibuprofen [Motrin Ib] 600 mg PO Q6H PRN PRN Reason: Pain Nicotine 14Mg/24Hr Patch [Habitrol] 1 patch TRANSDERM DAILY Mirtazapine [Remeron] 15 - 30 mg PO HS Albuterol Sulfate [Ventolin HFA] 1 - 2 puff INHALATION Q6H PRN PRN Reason: Shortness Of Breath Discharge Medication List Acetaminophen Tab [Tylenol] 650 mg PO Q4H PRN 05/13/24 [History] Albuterol Nebulized [Ventolin Nebulized] 2.5 mg INHALATION RT-Q6H PRN 05/13/24 [History] Albuterol Sulfate [Ventolin HFA] 1 - 2 puff INHALATION Q6H PRN 05/13/24 [History] Buprenorphine-Nalox 8-2 mg Tab [Suboxone 8-2 mg Tab] 1 tab SUBLINGUAL BID 04/16 [History] Calcium Phos/D3/Magnesium/Zinc [Kkmjkei-Pnl-Bpfg-Vitamin D3] 1 tab PO TID PRN 05/13/24 [History] Ibuprofen [Motrin Ib] 600 mg PO Q6H PRN 05/13/24 [History] Mirtazapine [Remeron] 15 - 30 mg PO HS 05/13/24 [History] Multivitamins, Thera [Multivitamin (formulary)] 1 tab PO DAILY 05/13/24 [History] Nicotine 14Mg/24Hr Patch [Habitrol] 1 patch TRANSDERM DAILY 05/13/24 [History] Thiamine [Vitamin B-1] 100 mg PO DAILY 05/13/24 [History] busPIRone HCl [Buspar] 10 mg PO TID 05/13/24 [History] Budesonide-Formot 160-4.5 Mcg [Symbicort 160-4.5 Mcg Inhaler] 2 puff INHALATION RT-BID #1 each 05/18/24 [Rx] Tiotropium 2.5 Mcg/Puff [Spiriva Respimat 2.5 Mcg] 2 puff INHALATION RT-DAILY 30 Days #1 each 05/18/24 [Rx] cefuroxime axetiL [Ceftin] 500 mg PO BID 5 Days #10 tab 05/18/24 [Rx] predniSONE See Taper PO DIRECTED #30 tab 05/18/24 [Rx] Follow up Appointment(s)/Referral(s): Nonstaff,Physician [REFERRING] - 1-2 days Patient Instructions/Handouts: Respiratory Syncytial Virus (DC) Activity/Diet/Wound Care/Special Instructions: Call [facility] at discharge for transport: [phone] #4. Continue taking antibiotics until finished Continue prednisone taper until finished Continue with inhalers Follow-up with pulmonary outpatient Discharge Disposition: OTHER INSTITUTION NOT DEFINED
== END 2024-05-18 15:32 | disposition other institution (70) | DRG 145 ==
LOC: EC 13:35 → 4SSUR 17:14
PROVIDERS: ADMIT Internal Medicine; ATTEND Internal Medicine
DX: J20.5 Acute bronchitis due to respiratory syncytial virus (principal); J44.1 Chronic obstructive pulmonary disease with (acute) exacerbation; J44.0 Chronic obstructive pulmonary disease with (acute) lower respiratory infection; J96.01 Acute respiratory failure with hypoxia; F14.10 Cocaine abuse, uncomplicated; M19.90 Unspecified osteoarthritis, unspecified site; F17.210 Nicotine dependence, cigarettes, uncomplicated; I10 Essential (primary) hypertension; F32.A Depression, unspecified; G43.909 Migraine, unspecified, not intractable, without status migrainosus; F11.10 Opioid abuse, uncomplicated; R91.1 Solitary pulmonary nodule; T38.0X5A Adverse effect of glucocorticoids and synthetic analogues, initial encounter; D72.829 Elevated white blood cell count, unspecified; Z59.00 Homelessness unspecified; Z79.899 Other long term (current) drug therapy; Z79.1 Long term (current) use of non-steroidal anti-inflammatories (NSAID); Z71.6 Tobacco abuse counseling; Z87.01 Personal history of pneumonia (recurrent); Z88.6 Allergy status to analgesic agent; Z79.51 Long term (current) use of inhaled steroids; Z60.2 Problems related to living alone
CPT/HCPCS: 36415; 71045; 71046; 80048; 80053; 83605; 83735; 83880; 84145; 84484; 85025; 85379; 85610; 85730; 87040; 87070; 87077; 87186; 87205; 87535; 87636; 93005; 94640; 94760; 96361; 96374; 99285